=== PATIENT | female | born 1995 | race Native Hawaiian/Other Pacific Islander ===

== ENCOUNTER 2020-11-14 13:25 | Outpatient (CLI) | payer BC, OTHER | END 2020-11-14 22:45 | disposition home or self-care (01) | LOC: RAD 13:25 | PROVIDERS: ATTEND Nurse Practitioner Family | DX: U07.1 COVID-19 (principal) ==

== ENCOUNTER 2021-08-16 11:36 | Outpatient (CLI) | payer BC | END 2021-08-16 21:40 | disposition home or self-care (01) | LOC: US 11:36 | PROVIDERS: ATTEND Nurse Practitioner Primary Care | DX: R10.11 Right upper quadrant pain (principal) ==

== ENCOUNTER 2021-08-21 09:01 | Outpatient (CLI) | payer BC | END 2021-08-21 18:59 | disposition home or self-care (01) | LOC: CT 09:01 | PROVIDERS: ATTEND Nurse Practitioner Primary Care | DX: K86.89 Other specified diseases of pancreas (principal) | CPT/HCPCS: Q9963 ==

== ENCOUNTER 2021-09-25 09:30 | Outpatient (CLI) | payer BC | END 2021-09-25 18:59 | disposition home or self-care (01) | LOC: CT 09:30 | PROVIDERS: ATTEND Family Medicine | DX: R59.1 Generalized enlarged lymph nodes (principal) | CPT/HCPCS: Q9963 ==